=== PATIENT | male | born 1970 | race African-American/Black ===

== ENCOUNTER 2025-04-30 09:23 | Outpatient (AMB) | payer BC, SELFPAY ==
--- NOTE | 2025-04-30 09:23 | A.OFFPC_ITS ---
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 Accompanied by: Self / Same As Patient Allergies No Known Allergies Allergy (Verified 04/30/25 09:27) Medication List - Last Reconciled 04/30/25 by Ana María Foster MD amlodipine 2.5 mg PO DAILY tadalafil 10 mg PO DAILY PRN Tobacco use date assessed: 04/30/25 Dental Screening Dental Screen Date: 04/30/25 Did you have a dental visit in the last 12 months?: Yes Did you have a dental problem in the last 6 months where you did not have access to dental care?: No Was dental information given to patient?: Patient has dentist HPI HPI Comments History of Present Illness Details The patient is a 54 year old male presenting to -[facility]. Hypertension: For his hypertension, the patient reports taking amlodipine 2.5 mg tablet approximately three days a week. He also reports near-daily use of naproxen for right foot pain. Right foot pain: The patient has been experiencing pain in his right foot, which began around December after his 76-pound dog sat on it. After three weeks of persistent pain, he sought medical attention, and an X-ray revealed arthritis. The pain is currently rated at a 2 out of 10 on a daily basis. He reports having to buy new, more supportive sneakers to manage the discomfort. Impaired fasting glucose- due for repeat a1c Health Maintenance: The patient has a history of chicken pox and shingles when younger. He has not received his flu shot. He denies any urinary issues such as a weak stream, feeling of incomplete emptying, or pressure in the bladder area. He has a his tory of GI bleeding and his last colonoscopy was in 2019. He denies any current bleeding or blood in his stool and follows a diet with no red meat or cheese. Social History: - Family Status: He is . [facility] Medical History (Updated 04/30/25 @ 09:47 by Ana María Foster MD) Right foot pain Hematochezia Impaired fasting glucose Primary hypertension Surgical History (Updated 04/02/25 @ 10:59 by Veronica Castellano) History of colonoscopy (~06/27/19) Family History (Updated 04/30/25 @ 08:49 by Ana María Foster MD) Other Coronary artery disease Primary hypertension Prostate cancer Social History Housing: House Patient Tobacco Use Status: Never used Tobacco e-Cigarette/Vaping Use: Never Used service: No Current occupational status: retired Questionnaire PHQ-9 Over the last 2 weeks, how often have you been bothered by any of the following problems? 1. Little interest or pleasure in doing things: not at all 2. Feeling down, depressed, or hopeless: not at all 3. Trouble falling or staying asleep, or sleeping too much: not at all 4. Feeling tired or having little energy: not at all 5. Poor appetite or overeating: not at all 6. Feeling bad about yourself - or that you are a failure or have let yourself or your family down: not at all 7. Trouble concentrating on things, such as reading the newspaper or watching television: not at all 8. Moving or speaking so slowly that other people could have noticed. Or the opposite - being so fidgety or restless that you have been moving around a lot more than usual: not at all 9. Thoughts that you would be better off or of hurting yourself in some way: not at all Total score: 0 Depression Screening Interpretation: Negative Depression Screening Done: Yes 01544 - PHQ-9 Billing: Yes Source: Developed by Drs. Leonardo Martini, Elif So, Jeff Stewart and colleagues, with an educational mina from [employer]. AUDIT C Alcohol Use Questionnaire (AUDIT-C) 1. How often do you have a drink containing alcohol?: Monthly or less 2. How many drinks containing alcohol do you have on a typical day when you are drinking?: 1 or 2 3. How often do you have six or more drinks on one occasion?: Never Total Score: 1 Review of Systems Narrative Review of Systems - General: Denies any new annoyances besides the foot pain. - Gastrointestinal: Denies bleeding or blood in stool. - Genitourinary: Denies weak urinary stream, feeling of incomplete emptying, or pressure in the bladder area. - Denies scrotal pain or pressure. - Msk: Reports pain in the right foot, rated 2/10. Physical exam (Primary Care) Vital Signs: Last Vital Signs Temp 97.1 F 04/30/25 09:26 Pulse 63 04/30/25 09:26 Resp 16 04/30/25 09:26 BP 130/80 04/30/25 09:26 Pulse Ox 96 04/30/25 09:26 Oxygen Delivery Method Room Air 04/30/25 09:26 BMI result Body Mass Index 27.2 Tobacco/Smoking Status: Tobacco use Status Tobacco use date assessed 04/30/25 04/30/25 09:25 Patient Tobacco Use Status Never used Tobacco 04/30/25 09:30 e-Cigarette/Vaping Use Never Used 04/30/25 09:30 PHQ-9: PHQ-9 Score PHQ-9: Total score 0 04/30/25 09:49 Depression Screening Interpretation: Negative Narrative Physical Exam - Lungs: Clear to auscultation bilaterally, no wheezing. - Cardiovascular: Regular heart rhythm. normal s1, s2 - Abdomen: Normal bowel sounds, soft, non-tender to palpation, non distended - Right Foot: Good range of motion with no pain on rotation. - No redness or swelling noted. - There is no tenderness to palpation. - A small bunion and calluses are noted. - Circulation appears good. - 2+ Dp pulses - Left Foot: No issues reported or observed. Coding Level of Care Code Est Pt Level 4 (25917) Add On Problem Visit Only Diagnoses Primary hypertension I10 Impaired fasting glucose R73.01 Right foot pain M79.671 Additional Codes PHQ-9 - 53786 - PHQ-9 Billing: Yes ([id number]) Assessment & Plan Assessment & Plan (1) Primary hypertension: Code(s): I10 - Essential (primary) hypertension Category: Medical (2) Impaired fasting glucose: Code(s): R73.01 - Impaired fasting glucose Category: Medical (3) Right foot pain: Code(s): M79.671 - Pain in right foot Category: Medical Plan Assessment and Plan 1. Hypertension - The patient is sub optimally adherent to his blood pressure medication, taking it only about three times a week. 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 2. Right Foot Pain secondary to Arthritis - The patient's pain is mild (2/10) and has been present since December. - A prescription for topical diclofenac (Voltaren) gel will be provided as a safer alternative to oral NSAIDs. - He was also advised on using Epsom salt soaks prn - A uric acid level will be checked via bloodwork to screen for gout. 3. Health Maintenance and Screening - The patient is due for routine labs. - Orders will be placed for a fasting panel including cholesterol, diabetes screening, CBC, PSA, uric acid, and a urinalysis to check for protein. 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 4. Re-establishing Care - Follow-up in August for physical Plan - Advised patient to increase blood pressure medication adherence - Counseled patient to discontinue naproxen and use Tylenol Extra Strength for pain as needed. - Will prescribe topical diclofenac gel for right foot pain. - Placed orders for fasting labs including a full panel, cholesterol, diabetes screening, blood counts, PSA, uric acid level, and a urine test for protein. - Discussed shingles vaccination; patient is considering it. Declined flu shot Discussion Notes Patient Instructions - Stop taking naproxen. - You can use Tylenol Extra Strength for pain if needed. - Increase your blood pressure medication adherence - For your foot pain, you can use the prescribed topical diclofenac gel (Voltaren). - Please call the office if any new issues come up. Orders: Orders Comprehensive Met. Panel 04/30/25 I10 - Essential (primary) hypertension, R73.01 - Impaired fasting glucose Complete Blood Count Auto Diff 04/30/25 I10 - Essential (primary) hypertension, R73.01 - Impaired fasting glucose Lipid Panel 04/30/25 I10 - Essential (primary) hypertension, R73.01 - Impaired fasting glucose PSA,Total (Free>4and<10) 04/30/25 I10 - Essential (primary) hypertension, R 73.01 - Impaired fasting glucose Hemoglobin A1c 04/30/25 I10 - Essential (primary) hypertension, R73.01 - Impaired fasting glucose Uric Acid 04/30/25 M79.671 - Pain in right foot Microalbumin, Random (w Creat) 04/30/25 I10 - Essential (primary) hypertension, R73.01 - Impaired fasting glucose Medications: New amlodipine 2.5 mg PO DAILY 90 tabs 3RF tadalafil 10 mg PO DAILY PRN 30 tabs 3RF erectile dysfunction diclofenac sodium 1% use as needed for foot pain 2 grams topical QID 100 grams 3RF foot pain
[2025-04-30 09:26] VITALS: BP 130/80; PULSE 63; RESP 16; TEMP 36.2; O2SAT 96; BMI 27.2
== END 2025-04-30 10:03 | disposition home or self-care (01) ==
LOC: HO.HMCHD 09:23
PROVIDERS: PCP Internal Medicine; Visit Provider Internal Medicine
DX: I10 Essential (primary) hypertension (principal); R73.01 Impaired fasting glucose; M79.671 Pain in right foot

== ENCOUNTER → 2025-04-30 09:23 | Outpatient (BNVA) | payer BC, SELFPAY | PROVIDERS: PCP Internal Medicine; Visit Provider Internal Medicine | DX: Z76.89 Persons encountering health services in other specified circumstances (principal); I10 Essential (primary) hypertension; R73.01 Impaired fasting glucose; M79.671 Pain in right foot | CPT/HCPCS: 96127 ==

== ENCOUNTER 2025-05-10 08:10 | Outpatient (REF) | payer BC, SELFPAY ==
--- OUTSIDE RECORDS SUMMARY | 2025-05-10 08:16 | XMS_ITS ---
Author Name [facility] Organization Unknown Care Team Organization Name Specialty Phone Email Start Date End [facility] Out[facility] ADT-[facility] 05/04 [facility] 04/06/2024
[2025-05-10 15:12] LABS: MANUAL DIFF FLAG NO
[2025-05-10 15:30] LABS: Hematocrit 46.0 % (42.0-52.0); Hemoglobin 14.8 g/dl (14.0-18.0); Imm Gran Abs Auto 0.02 X10*3/uL (0.00-0.03); Imm Gran Pct Auto 0.4 % (0.0-0.4); Lymphocytes Absolute Auto 1.4 X10*3/uL (1.2-4.9); Mean Corpuscular HGB Conc 32.2 g/dl (31.0-36.0); Mean Corpuscular Hemoglobin 26.8 pg (27.0-33.0); Mean Corpuscular Volume 83.3 fL (80.0-98.0); NRBC Abs Auto 0.000 X10*3/uL (0.0-0.012); NRBC Pct Auto 0.0 /100WBC (0.0-0.2); Platelet Count 234 X10*3/uL (160-400); Red Blood Count 5.52 X10*6/uL (4.60-5.80); White Blood Count 4.5 X10*3/uL (4.8-10.8)
[2025-05-10 16:11] LABS: PSA,Total (Free>4and<10) 0.92 ng/mL (0.00-4.00)
[2025-05-10 16:21] LABS: Alanine Aminotransferase 21 U/L (0-40); Albumin Level 4.5 g/dL (3.5-5.0); Alkaline Phosphatase 63 U/L (39-117); Anion Gap 11 (12-20); Aspartate Amino Transferase 22 U/L (5-37); Blood Urea Nitrogen 18 mg/dL (9-16); Calcium 9.6 mg/dL (8.4-10.2); Carbon Dioxide 31 mmol/L (22-29); Chloride 105 mmol/L (96-108); Cholesterol 202 mg/dL (<200); Estimated Glomerular Filt Rate > 60; HDL Cholesterol 50 mg/dL (>40); Potassium 4.5 mmol/L (3.3-5.1); Sodium 142 mmol/L (135-145); Total Protein 7.1 g/dL (6.5-8.0); Triglycerides 102 mg/dL (<150); Uric Acid 6.9 mg/dL (3.4-7.0)
== END 2025-05-10 08:11 | disposition home or self-care (01) ==
LOC: HO.HKASLDS 08:10
PROVIDERS: PCP Internal Medicine; Visit Provider Internal Medicine
DX: I10 Essential (primary) hypertension (principal); R73.01 Impaired fasting glucose; M79.671 Pain in right foot; Z12.5 Encounter for screening for malignant neoplasm of prostate
CPT/HCPCS: 36415; 80053; 80061; 82043; 82570; 83036; 84153; 84550; 85025